=== PATIENT | male | born 1970 | race Caucasian/White ===

== ENCOUNTER → 2021-03-12 | Day surgery (SDC) | payer BC, OTHER ==
[~2021-03-12] MED LIST: BASAGLAR SC; JANUVIA100 MG PO; METFORMIN HCL1000 MG PO; METFORMIN HCL500 MG PO; PERCOCET 5-3251 EACH PO
== END | disposition home or self-care (01) ==
LOC: OR 07:02
DX: D12.0 Benign neoplasm of cecum (principal); N40.0 Benign prostatic hyperplasia without lower urinary tract symptoms; E11.9 Type 2 diabetes mellitus without complications; Z86.010 Personal history of colon polyps; Z87.891 Personal history of nicotine dependence; Z79.4 Long term (current) use of insulin; Z79.899 Other long term (current) drug therapy
CPT/HCPCS: 82962; J2001; J2704; J7120

== ENCOUNTER → 2021-04-04 | Outpatient (CLI) | payer BC, OTHER | LOC: CT 10:26 | DX: K62.89 Other specified diseases of anus and rectum (principal) | CPT/HCPCS: 36415; 72193; 82565; Q9967 ==

== ENCOUNTER 2021-04-30 17:53 | Emergency (ER) | payer BC, OTHER ==
[~2021-04-30 17:53] MED LIST changes: -PERCOCET 5-3251 EACH PO
[2021-04-30] MEDS ORDERED: PERCOCET 5-3251 EACH PO ×2 (20:02→20:03)
== END 2021-04-30 20:15 | disposition home or self-care (01) ==
LOC: ER1 17:53
DX: N20.1 Calculus of ureter (principal); E11.9 Type 2 diabetes mellitus without complications; Z87.442 Personal history of urinary calculi; Z90.89 Acquired absence of other organs; Z79.4 Long term (current) use of insulin; Z79.899 Other long term (current) drug therapy
CPT/HCPCS: 81001; 82962; 96372; 99284; J1885